=== PATIENT | male | born 1975 | race American Indian/Alaskan Native ===

== ENCOUNTER 2017-02-04 07:41 | Emergency (ER) | payer BC ==
[2017-02-04 08:01] VITALS: BP 129/79
--- NOTE | 2017-02-04 11:03 | Emergency Department Report ---
Entered by CARROLL LERMA, acting as scribe for YAEL ART PA. - General Chief complaint: Skin/Abscess/Foreign Body Stated complaint: ABCESS Time Seen by Provider: 02/04/17 10:23 Source: patient Mode of arrival: Ambulatory Limitations: No Limitations - History of Present Illness Initial comments: 41 y/o male presents c/o abscess on his left buttocks region that started 4 days ago and worsened yesterday. Pt states he could not stand up due to pain and notes pain is aggravated by sitting. Sx include fever and chills that started and resolved 3 days ago but pt denies any drainage from the abscess. No additional Sx. MD complaint: abscess/boil -: days(s) (4) Location: buttocks (left region) Severity: mild Quality: constant Consistency: constant Improves with: none Worsens with: other (sitting) Context: none Associated symptoms: fever (relieved 2 days ago), other (chills relieved 2 days ago, but pt denies drainage) Treatments Prior to Arrival: none - Related Data Previous Rx's Medication Instructions Recorded Last Taken Type Acetaminophen/Codeine [Tylenol 1 tab PO Q4HR PRN #12 tablet 02/04/17 Unknown Rx /Codeine # 3 tab] Sulfamethoxazole/Trimethoprim 1 each PO BID #20 tablet 02/04/17 Unknown Rx [Bactrim DS TAB] Allergies Allergy/AdvReac Type Severity Reaction Status Date / Time No Known Allergies Allergy Unverified 02/04/17 07:58 Abscess Boil HPI - HPI Chief Complaint: Skin/Abscess/Foreign Body Stated Complaint: ABCESS Home Medications: Previous Rx's Medication Instructions Recorded Last Taken Type Acetaminophen/Codeine [Tylenol 1 tab PO Q4HR PRN #12 tablet 02/04/17 Unknown Rx /Codeine # 3 tab] Sulfamethoxazole/Trimethoprim 1 each PO BID #20 tablet 02/04/17 Unknown Rx [Bactrim DS TAB] Allergies/Adverse Reactions: Allergies Allergy/AdvReac Type Severity Reaction Status Date / Time No Known Allergies Allergy Unverified 02/04/17 07:58 ED Review of Systems Comment: All other systems reviewed and negative Constitutional: chills, fever Skin: denies: other (drainage ) ED Past Medical Hx - Past Medical History Previous Medical History?: No - Surgical History Past Surgical History?: No - Social History Smoking Status: Current Every Day Smoker Substance Use Type: Alcohol - Medications Home Medications: Home Medications Medication Instructions Recorded Confirmed Last Taken Type Acetaminophen/Codeine [Tylenol 1 tab PO Q4HR PRN #12 tablet 02/04/17 Unknown Rx /Codeine # 3 tab] Sulfamethoxazole/Trimethoprim 1 each PO BID #20 tablet 02/04/17 Unknown Rx [Bactrim DS TAB] ED Physical Exam - General Limitations: No Limitations - Head Head exam: Present: atraumatic, normocephalic - Eye Eye exam: Present: normal appearance - ENT ENT exam: Present: mucous membranes moist - Skin Skin exam: Present: warm, dry - Expanded Skin Exam Expanded Type of lesion: Present: abscess (10 cm x 4 cm indurated in left gueatal cleft , tender to palpate with soft center. ) 1 - 10cm x 4cm - Other Other exam information: GENERAL: Patient is alert and oriented x 3. No apparent distress, normal gait, atraumatic. HEAD: Head is normocephalic and atraumatic. EYES: Extraocular movements are intact. Pupils are equal, round, and reactive to light and accommodation. NECK: Supple. Non edematous, no carotid bruits. No lymphadenopathy or thyromegaly. LUNGS: Symmetrical with respiration. No wheezing, rales or crackles, CTAB. HEART: Regular rate and rhythm with normal S1/S2 present. No murmurs, rubs, or gallops. ABDOMEN: Soft, nondistended. Nontender to palpation on all quadrants. No organomegaly was noted. Positive bowel sounds. No CVA tenderness. BREAST: Symmetrical. Supple bilaterally, No Masses, lumps, lesions, ulcerations. GENITOURINARY: External genitalia without erythema, exudate or discharge. Vaginal vault is without discharge. Cervix is of normal color without lesion. Cervical os is closed. No bleeding noted. Uterus is noted to be of normal size and nontender. No cervical motion tenderness. No masses are palpated. The adnexa are without masses or tenderness. UROGENITAL: No scrotal mass. Scrotum non tender to palpation bilaterally. No hernia, no scars or penile discharge. EXTREMITIES/MUSCULOSKELETAL: No cyanosis, clubbing, rash, lesions or edema. Full ROM bilaterally. UE/LE Pulses 2+ bilaterally. LE and UE 5+ strength bilaterally SKIN: Warm and dry. No lesions, ulceration or induration present. ED Course Vital Signs 02/04/17 07:58 Temperature 99.1 F Pulse Rate 94 H Respiratory 16 Rate Blood Pressure 129/79 O2 Sat by Pulse 100 Oximetry ED Medical Decision Making - Medical Decision Making 41 y/o male presents c/o abscess on his left buttocks region that started 4 days ago and worsened yesterday. Will place patient on Bactrim double strength for 10 days. Discussed the patient he needs to follow up within 3-5 days for evaluation of abscess. Patient verbalized understanding Patient is in no acute distress at this time. He will be discharged home and is encouraged to follow up with a primary care provider. He is encouraged to return to the emergency room for any worsening symptoms. ED Disposition Clinical Impression: Abscess, Cellulitis and abscess of buttock Disposition: DISCHARGED TO HOME OR SELFCARE Is pt being admited?: No Does the pt Need Aspirin: No Condition: Stable Instructions: Abscess (ED), Cellulitis (ED) Additional Instructions: Please complete antibiotics as prescribed. Follow up in the emergency room in 3 -5 days for follow-up. Recommend since all warm baths. As well as warm to hot moist compresses to the abscess. Prescriptions: Acetaminophen/Codeine [Tylenol /Codeine # 3 tab] 1 tab PO Q4HR PRN #12 tablet PRN Reason: Pain Sulfamethoxazole/Trimethoprim [Bactrim DS TAB] 1 each PO BID #20 tablet Referrals: PRIMARY CARE, [Primary Care Provider] - 3-5 Days Forms: Work/School Release Form(ED) This documentation as recorded by the FLORENTIN phillips RYAN,accurately reflects the service I personally performed and the decisions made by ,YAEL ART PA.
== END 2017-02-04 11:02 | disposition home or self-care (01) ==
LOC: ED 07:41
DX: L02.31 Cutaneous abscess of buttock (principal); L03.317 Cellulitis of buttock; F17.200 Nicotine dependence, unspecified, uncomplicated
CPT/HCPCS: 87116; 99282

== ENCOUNTER 2017-02-09 12:31 | Emergency (ER) | payer BC | END 2017-02-09 12:32 | disposition left against medical advice (07) | LOC: ED 12:31 | DX: Z53.21 Procedure and treatment not carried out due to patient leaving prior to being seen by health care provider (principal) ==

== ENCOUNTER 2019-05-23 08:01 | Emergency (ER) | payer BC, OTHER ==
[2019-05-23 08:11] VITALS: BP 136/87
[2019-05-23] MEDS ORDERED: NACL 0.9% 1000 ML 1,000 ML IV ONE (08:30)
[2019-05-23] MEDS ORDERED: MORPHINE IV ONE (08:30)
[2019-05-23] MEDS ORDERED: CLEOCIN 900 MG/50 mL 900 MG/50 ML BAG IV ONE (08:30)
--- NOTE | 2019-05-23 08:49 | Emergency Department Report ---
Abscess Boil HPI - HPI Chief Complaint: Skin/Abscess/Foreign Body Stated Complaint: BOIL ON BACK Time Seen by Provider: 05/23/19 08:21 Duration: 5 Days Location: Perianal Severity: Moderate History: Yes Pain, No Fever, No Purulent Drainage, No Numbness, No Foreign Body, No Previous History, No Insect Bite HPI: This is a 28-year-old male nontoxic, well nourished in appearance, no acute signs of distress presents to the ED with c/o of perianal swelling and pain with redness. Patient denies any pus or drainage. Patient denies any fever, chills, nausea, vomiting, chest pain, shortness of breath, headache or stiff neck. Patient denies any allergies or significant past medical history. Home Medications: Previous Rx's Medication Instructions Recorded Last Taken Type Acetaminophen/Codeine [Tylenol 1 tab PO Q4HR PRN #12 tablet 02/04/17 Unknown Rx /Codeine # 3 tab] Sulfamethoxazole/Trimethoprim 1 each PO BID #20 tablet 02/04/17 Unknown Rx [Bactrim DS TAB] Acetaminophen/Codeine [Tylenol 1 tab PO Q6H PRN #12 tab 05/23/19 Unknown Rx /Codeine # 3 tab] Clindamycin [Clindamycin CAP] 300 mg PO Q8H #21 cap 05/23/19 Unknown Rx Allergies/Adverse Reactions: Allergies Allergy/AdvReac Type Severity Reaction Status Date / Time No Known Allergies Allergy Unverified 02/04/17 07:58 ED Review of Systems ROS: Stated complaint: BOIL ON BACK Other details as noted in HPI Constitutional: denies: chills, fever Eyes: denies: eye pain, eye discharge, vision change ENT: denies: ear pain, throat pain Respiratory: denies: cough, shortness of breath, wheezing Cardiovascular: denies: chest pain, palpitations Endocrine: no symptoms reported Gastrointestinal: denies: abdominal pain, nausea, diarrhea Genitourinary: denies: urgency, dysuria Musculoskeletal: denies: back pain, joint swelling, arthralgia Skin: denies: rash, lesions Neurological: denies: headache, weakness, paresthesias Psychiatric: denies: anxiety, depression Hematological/Lymphatic: denies: easy bleeding, easy bruising ED Past Medical Hx - Past Medical History Previous Medical History?: No - Surgical History Past Surgical History?: No - Social History Smoking Status: Current Every Day Smoker Substance Use Type: None - Medications Home Medications: Home Medications Medication Instructions Recorded Confirmed Last Taken Type Acetaminophen/Codeine [Tylenol 1 tab PO Q4HR PRN #12 tablet 02/04/17 Unknown Rx /Codeine # 3 tab] Sulfamethoxazole/Trimethoprim 1 each PO BID #20 tablet 02/04/17 Unknown Rx [Bactrim DS TAB] Acetaminophen/Codeine [Tylenol 1 tab PO Q6H PRN #12 tab 05/23/19 Unknown Rx /Codeine # 3 tab] Clindamycin [Clindamycin CAP] 300 mg PO Q8H #21 cap 05/23/19 Unknown Rx ED Abscess Boil Physical Exam - Exam General: Vital signs noted. No distress. Alert and acting appropriately. Front/Back of Body, Lg (Color): 1 - pain and swelling here Size: >5 cm Exam: Yes Tenderness, Yes Fluctuance, Yes Normal Neurologic Exam, Yes Normal Circulation, No Surrounding Cellulites/Erythema, No Lymphangitis, No Crepitation, No Heart Murmur I & D Note - I & D Note I & D Note: Under sterile field, I used Betadine to cleanse the area. I then used 2% lidocaine plain with 25-gauge 5/8 needle to inject area for anesthetic purposes. Total volume injected 3 mL. I then used an 11 blade to make a 1 cm incision. About 2 mL's of purulent drainage has been noted. I then used a hemostat to break the abscess formation. I then used sterile 0.9% normal saline flush to flush the wound with total volume of 40 mL used. I then put a 1 inch iodoform packing to the incision. A sterile 4 x 4 with tape has been applied as dressing. Bleeding is under control. Patient tolerated the procedure well with no signs of distress noted. ED Course Vital Signs 05/23/19 08:11 Temperature 98.2 F Pulse Rate 97 H Respiratory 16 Rate Blood Pressure 136/87 [Right] O2 Sat by Pulse 97 Oximetry - Reevaluation(s) Reevaluation #1: 05/23/19 08:49 Patient is speaking in full sentences with no signs of distress noted. Critical care attestation.: If time is entered above; I have spent that time in minutes in the direct care of this critically ill patient, excluding procedure time. ED Medical Decision Making - Lab Data Result diagrams: 05/23/19 08:33 05/23/19 08:33 - Medical Decision Making This is a 44-year-old male that presents with abscess. Patient is stable and was examined by me. This is incision and drainage and has been performed and patient tolerated well. A sterile dressing has been applied. Patient was educated on proper wound care. CT scan with contrast has been obtained and dictated by radiologist with gluteal abscess. Patient did receive IV clindamycin in the ER. Patient is discharged with clindamycin and Tylenol with codeine and was instructed not to operate any machinery while taking Tylenol with codeine due to drowsiness. Patient was instructed to return in 2 days for packing removal. Patient was instructed to refer to Follow-up with a primary care doctor in 3-5 days or if symptoms worsen and continue return to emergency room as soon as possible. At time of discharge, the patient does not seem toxic or ill in appearance. No acute signs of distress noted. Patient agrees to discharge treatment plan of care. No further questions noted by the patient. ED Disposition Clinical Impression: Abscess, Encounter for incision and drainage procedure Disposition: - TO HOME OR SELFCARE Is pt being admited?: No Does the pt Need Aspirin: No Condition: Stable Instructions: Abscess Incision and Drainage (ED), Abscess (ED), Acetaminophen/Codeine (By mouth) Additional Instructions: Follow-up with a primary care doctor in 3-5 days or if symptoms worsen and continue return to emergency room as soon as possible. Do not operate any machinery while taking Tylenol with codeine as this may cause drowsiness. Return in 2 days for packing removal. Prescriptions: Clindamycin [Clindamycin CAP] 300 mg PO Q8H #21 cap Acetaminophen/Codeine [Tylenol /Codeine # 3 tab] 1 tab PO Q6H PRN #12 tab PRN Reason: Pain , Severe (7-10) Referrals: [facility] MD RUTH [Primary Care Provider] - 3-5 Days PRIMARY MD KALPESH [Referring] - 3-5 Days JERAMY ADAMS MD [Staff Physician] - 3-5 Days [facility] [Outside] - 3-5 Days [facility] [Outside] - 3-5 Days Forms: Work/School Release Form(ED)
[2019-05-23 08:59] LABS: Basophils % (Auto) 0.2 % (0.0-1.8); Eosinophils # (Auto) 0.1 K/mm3 (0.0-0.4); Eosinophils % (Auto) 0.7 % (0.0-4.3); Hematocrit 44.2 % (35.5-45.6); Hemoglobin 15.4 gm/dl (11.8-15.2); Lymphocytes # (Auto) 1.8 K/mm3 (1.2-5.4); Lymphocytes % (Auto) 13.9 % (13.4-35.0); Mean Corpuscular HGB Conc 35 % (32-34); Mean Corpuscular Volume 95 fl (84-94); Monocytes # (Auto) 1.5 K/mm3 (0.0-0.8); Monocytes % (Auto) 11.3 % (0.0-7.3); Platelet Count 250 K/mm3 (140-440); Red Blood Count 4.64 M/mm3 (3.65-5.03); Red Cell Distribution Width 13.1 % (13.2-15.2)
[2019-05-23 09:15] LABS: BUN/Creatinine Ratio 10; Blood Urea Nitrogen 12 mg/dL (9-20); Calcium 9.7 mg/dL (8.4-10.2); Hemolysis Index 9
--- NOTE | 2019-05-23 10:41 | Cat Scan Report ---
CT PELVIS WITH CONTRAST HISTORY: MAIN: perianal pain and swelling r/o abscess TECH NOTE: PERIANAL ABSCESS THAT STARTED SATU RDAY. COMPARISON: None. TECHNIQUE: CT images of the pelvis were obtained following administration of intravenous contrast. Sa gittal and coronal reformatted images. All CT scans at this location are performed using CT dose redu ction for [facility] by means of automated exposure control. CONTRAST: 100 ml of intravenous contrast administered. FINDINGS: There is an ill-defined area of skin induration and swelling in the medial left buttock subcutaneous tissues measuring 3.9 x 2.5 cm in axial plane. There appears to be a a small amount of internal fluid but no gas. This probably represents an early left gluteal abscess. This appears to be slightly post erior to the anus. The ischiorectal fossa fat is clean. Visualized bowel loops in the pelvis are within normal limits. Normal appendix. The bladder, distal ureters and prostate gland are normal. The vascular structures are patent. The [place] pelvis is intact. No evidence for pelvic abscess, inflammation or adenopathy. IMPRESSION: Early left medial gluteal subcutaneous abscess as described. Signer Name: Earl Lopez Jr, MD Signed: 05/23/2019 10:37 AM Workstation Name: [id number]
[2019-05-23] MEDS ORDERED: XYLOCAINE 2% INFILTRATI ONE (10:56)
== END 2019-05-23 11:21 | disposition home or self-care (01) ==
LOC: ED 08:01
DX: L02.212 Cutaneous abscess of back [any part, except buttock and flank] (principal); F17.200 Nicotine dependence, unspecified, uncomplicated; Z79.899 Other long term (current) drug therapy
CPT/HCPCS: 10060; 36415; 72193; 80048; 85025; 96365; 96375; 99284; J2270; J7030; Q9967

== ENCOUNTER 2019-05-25 09:18 | Emergency (ER) | payer OTHER ==
[2019-05-25 09:30] VITALS: BP 123/81
--- NOTE | 2019-05-25 10:12 | Emergency Department Report ---
- General Chief Complaint: Skin/Abscess/Foreign Body Stated Complaint: FOLLOW UP Time Seen by Provider: 05/25/19 09:59 Source: patient Mode of arrival: Ambulatory Limitations: No Limitations - History of Present Illness Initial Comments: Mr. Khan is a healthy 44-year-old male who presents to the ER for skin check. 2 days ago he was treated for a left buttock abscess with incision and drainage. Packing is in place. Continue to take antibiotics. The abscesses has continued to drain pus. No associated symptoms. Minor discomfort. No fever. Denies history of diabetes. -: Gradual Location: other (left buttock) Extremity Location: Left: Hip Context: other (abscess incision and drainage) Associated Symptoms: none - Related Data Previous Rx's Medication Instructions Recorded Last Taken Type Acetaminophen/Codeine [Tylenol 1 tab PO Q4HR PRN #12 tablet 02/04/17 Unknown Rx /Codeine # 3 tab] Sulfamethoxazole/Trimethoprim 1 each PO BID #20 tablet 02/04/17 Unknown Rx [Bactrim DS TAB] Acetaminophen/Codeine [Tylenol 1 tab PO Q6H PRN #12 tab 05/23/19 Unknown Rx /Codeine # 3 tab] Clindamycin [Clindamycin CAP] 300 mg PO Q8H #21 cap 05/23/19 Unknown Rx Allergies Allergy/AdvReac Type Severity Reaction Status Date / Time No Known Allergies Allergy Unverified 02/04/17 07:58 ED Review of Systems ROS: Stated complaint: FOLLOW UP Other details as noted in HPI Constitutional: denies: fever, malaise Gastrointestinal: denies: abdominal pain Skin: rash Neurological: denies: numbness ED Past Medical Hx - Past Medical History Previous Medical History?: No - Surgical History Past Surgical History?: No - Social History Smoking Status: Current Every Day Smoker Substance Use Type: Alcohol - Medications Home Medications: Home Medications Medication Instructions Recorded Confirmed Last Taken Type Acetaminophen/Codeine [Tylenol 1 tab PO Q4HR PRN #12 tablet 02/04/17 Unknown Rx /Codeine # 3 tab] Sulfamethoxazole/Trimethoprim 1 each PO BID #20 tablet 02/04/17 Unknown Rx [Bactrim DS TAB] Acetaminophen/Codeine [Tylenol 1 tab PO Q6H PRN #12 tab 05/23/19 Unknown Rx /Codeine # 3 tab] Clindamycin [Clindamycin CAP] 300 mg PO Q8H #21 cap 05/23/19 Unknown Rx ED Physical Exam - General Limitations: No Limitations General appearance: alert, in no apparent distress - Head Head exam: Present: atraumatic, normocephalic - ENT ENT exam: Present: mucous membranes moist - Neurological Exam Neurological exam: Present: alert, oriented X3 - Psychiatric Psychiatric exam: Present: normal affect, normal mood - Other Other exam information: Left buttock 6 cm abscess with fluctuance and no erythema. Small opening with iodoform packing and copious purulence ED Course Vital Signs 05/25/19 09:27 Temperature 97.8 F Pulse Rate 73 Respiratory 18 Rate Blood Pressure 123/81 O2 Sat by Pulse 98 Oximetry ED Medical Decision Making - Medical Decision Making I have elected to keep the iodoform packing in place, Mr. Khan return for packing removal once antibiotics are completed next week. Critical care attestation.: If time is entered above; I have spent that time in minutes in the direct care of this critically ill patient, excluding procedure time. ED Disposition Clinical Impression: Abscess Disposition: DC-01 TO HOME OR SELFCARE Is pt being admited?: No Does the pt Need Aspirin: No Condition: Stable Additional Instructions: Please return once you have completed all the antibiotics. Forms: Work/School Release Form(ED)
== END 2019-05-25 10:25 | disposition home or self-care (01) ==
LOC: ED 09:18
DX: L02.31 Cutaneous abscess of buttock (principal); F17.200 Nicotine dependence, unspecified, uncomplicated; Z79.899 Other long term (current) drug therapy
CPT/HCPCS: 99282

== ENCOUNTER 2020-12-06 19:59 | Emergency (ER) | payer OTHER ==
[2020-12-06] MEDS ORDERED: IBUPROFEN 800 MG TAB PO ONE (20:05)
[2020-12-06] MEDS ORDERED: CLINDAMYCIN 150 MG CAP PO ONE (20:06)
[2020-12-06] MEDS ORDERED: SULFAMETHOXAZOLE/TRIMETHOPRIM 800/160MG DS TAB PO ONE (20:06)
[2020-12-06] MEDS ORDERED: oxyCODONE /ACETAMINOPHEN 5-325MG TAB PO ONE (20:07)
[2020-12-06] MEDS ORDERED: LIDOCAINE (1%) 10 MG/1 ML VIAL 20 ML MDV INFILTRATI ONE (20:07)
[2020-12-06] MEDS ORDERED: ONDANSETRON 4 MG ODT TAB PO ONE (20:07)
--- NOTE | 2020-12-06 20:14 | Emergency Department Report ---
ED General Adult HPI - General Chief complaint: Wound/Laceration Stated complaint: BOIL Source: patient Mode of arrival: Ambulatory Limitations: No Limitations - History of Present Illness Initial comments: Patient is a 45-year-old -[place] male with a history of morbid obesity who presents to the ED with complaint of acute onset persistent painful swollen erythematous maculopapular rash on right gluteus for the last 1 week. Patient states that he has been taking [id number] medications with no relief. Patient states that he has previously had similar symptoms and had to be lanced in the ER. Patient denies fever, chills, nausea, vomiting, dizziness, syncope, chest pain or shortness of breath, numbness and tingling or weakness of lower extremities bilaterally. MD Complaint: Right gluteal painful swollen rash -: Sudden, days(s) (7) Location: buttocks (right gluteus) Radiation: non-radiation Severity scale (0 -10): 8 Quality: aching, sharp Consistency: constant Improves with: none Worsens with: movement Associated Symptoms: denies other symptoms, rash (swollen, painful erythematous rash on right gluteus). denies: confusion, chest pain, cough, diaphoresis, fever/chills, headaches, loss of appetite, malaise, nausea/vomiting, seizure, shortness of breath, syncope, weakness, other Treatments Prior to Arrival: none - Related Data Previous Rx's Medication Instructions Recorded Last Taken Type Acetaminophen/Codeine [Tylenol 1 tab PO Q4HR PRN #12 tablet 02/04/17 Unknown Rx /Codeine # 3 tab] Sulfamethoxazole/Trimethoprim 1 each PO BID #20 tablet 02/04/17 Unknown Rx [Bactrim DS TAB] Acetaminophen/Codeine [Tylenol 1 tab PO Q6H PRN #12 tab 05/23/19 Unknown Rx /Codeine # 3 tab] Clindamycin [Clindamycin CAP] 300 mg PO Q8H #21 cap 05/23/19 Unknown Rx Acetaminophen/Codeine [Tylenol 1 tab PO Q6H PRN #12 tab 12/06/20 Unknown Rx /Codeine # 3 tab] Clindamycin [Clindamycin CAP] 300 mg PO Q8HR #60 capsule 12/06/20 Unknown Rx Ibuprofen [Motrin] 800 mg PO Q8HR PRN #30 tablet 12/06/20 Unknown Rx Sulfamethoxazole/Trimethoprim 1 each PO Q12H #20 tablet 12/06/20 Unknown Rx [Bactrim DS TAB] Allergies Allergy/AdvReac Type Severity Reaction Status Date / Time No Known Allergies Allergy Verified 12/06/20 20:13 ED Review of Systems ROS: Stated complaint: BOIL Other details as noted in HPI Constitutional: denies: chills, fever Eyes: denies: eye pain, eye discharge, vision change ENT: denies: ear pain, throat pain Respiratory: denies: cough, shortness of breath, wheezing Cardiovascular: denies: chest pain, palpitations Endocrine: no symptoms reported Gastrointestinal: denies: abdominal pain, nausea, diarrhea Genitourinary: denies: urgency, dysuria Musculoskeletal: arthralgia (right gluteus painful swollne rash). denies: back pain, joint swelling Skin: rash (swollen erythematous painful rash on right gluteus), change in color. denies: lesions Neurological: denies: headache, weakness, paresthesias Psychiatric: denies: anxiety, depression Hematological/Lymphatic: denies: easy bleeding, easy bruising ED Past Medical Hx - Past Medical History Previous Medical History?: No - Social History Smoking Status: Current Every Day Smoker - Medications Home Medications: Home Medications Medication Instructions Recorded Confirmed Last Taken Type Acetaminophen/Codeine [Tylenol 1 tab PO Q4HR PRN #12 tablet 02/04/17 Unknown Rx /Codeine # 3 tab] Sulfamethoxazole/Trimethoprim 1 each PO BID #20 tablet 02/04/17 Unknown Rx [Bactrim DS TAB] Acetaminophen/Codeine [Tylenol 1 tab PO Q6H PRN #12 tab 05/23/19 Unknown Rx /Codeine # 3 tab] Clindamycin [Clindamycin CAP] 300 mg PO Q8H #21 cap 05/23/19 Unknown Rx Acetaminophen/Codeine [Tylenol 1 tab PO Q6H PRN #12 tab 12/06/20 Unknown Rx /Codeine # 3 tab] Clindamycin [Clindamycin CAP] 300 mg PO Q8HR #60 capsule 12/06/20 Unknown Rx Ibuprofen [Motrin] 800 mg PO Q8HR PRN #30 tablet 12/06/20 Unknown Rx Sulfamethoxazole/Trimethoprim 1 each PO Q12H #20 tablet 12/06/20 Unknown Rx [Bactrim DS TAB] ED Physical Exam - General Limitations: No Limitations General appearance: alert, in no apparent distress - Head Head exam: Present: atraumatic, normocephalic, normal inspection - Eye Eye exam: Present: normal appearance, PERRL, EOMI Pupils: Present: normal accommodation - ENT ENT exam: Present: normal exam, normal orophraynx, mucous membranes moist, TM's normal bilaterally, normal external ear exam - Neck Neck exam: Present: normal inspection, full ROM - Respiratory Respiratory exam: Present: normal lung sounds bilaterally. Absent: respiratory distress, wheezes, rales, rhonchi, chest wall tenderness, prolonged expiratory - Cardiovascular Cardiovascular Exam: Present: normal rhythm, tachycardia, normal heart sounds. Absent: systolic murmur, diastolic murmur, rubs, gallop - GI/Abdominal GI/Abdominal exam: Present: soft, normal bowel sounds. Absent: tenderness, guarding, rebound, hyperactive bowel sounds, hypoactive bowel sounds, organomegaly, mass - Extremities Exam Extremities exam: Present: normal inspection, full ROM, normal capillary refill - Back Exam Back exam: Present: normal inspection, full ROM. Absent: tenderness, CVA tenderness (R), CVA tenderness (L), muscle spasm, paraspinal tenderness, vertebral tenderness - Neurological Exam Neurological exam: Present: alert, oriented X3, CN II-XII intact, normal gait, reflexes normal - Psychiatric Psychiatric exam: Present: normal affect, normal mood - Skin Skin exam: Present: warm, dry, intact, normal color, rash (Palpable severely tender swollen erythematous maculopapular fluctuant rash on right gluteus), erythema ED Course Vital Signs 12/06/20 12/06/20 20:04 23:23 Temperature 99.6 F Pulse Rate 108 H 90 Respiratory 20 18 Rate Blood Pressure 139/78 Blood Pressure 131/80 [Right] O2 Sat by Pulse 94 95 Oximetry - I & D Right Buttocks Type of Procedure: Simple Site: Right gluteus cleft Blade Size: 11 I & D Procedure: betadine prep, sterile drapes applied, sterile dressing applied Progress: The area was cleaned with with normal saline and Betadine and local anesthetic lidocaine 1% solution was used to infiltrate the area for anesthesia. The area was then incised per protocol and thick purulent discharge drained from the incision. The loculations were broken extensively with hemostat and the content debrided extensively with normal saline. The wound was then packed with iodoform quarter-inch and dressed appropriately. Patient tolerated procedure well. ED Medical Decision Making - Medical Decision Making This is a 45-year-old -[place] male with a history of morbid obesity who presents to the ED with complaint of acute onset persistent painful swollen erythematous maculopapular rash on right gluteus for the last 1 week. Patient states that he has been taking [id number] medications with no relief. Patient states that he has previously had similar symptoms and had to be lanced in the ER. The ED, patient is alert and oriented x3 and is not in any distress. Patient was treated for pain in the ED and also given initial oral antibiotics. The swollen fluctuant right gluteal abscess was incised and drained per protocol. Patient tolerated procedure well. The wound was debrided thoroughly with normal saline afterwards and dressed appropriately after packing with iodoform gauze quarter-inch. Patient tolerated procedure well. Patient was therefore discharged home on pain medications and antibiotics and was advised to return to the ED in 2 days for wound recheck and packing removal. Patient was advised to follow-up with his primary care physician in 7 to 10 days for reevaluation or return to the ED immediately if symptoms get worse. - Differential Diagnosis Cellulitis; abscess; folliculitis Critical care attestation.: If time is entered above; I have spent that time in minutes in the direct care of this critically ill patient, excluding procedure time. ED Disposition Clinical Impression: Cutaneous abscess of buttock, Cellulitis of right buttock Disposition: DC-01 TO HOME OR SELFCARE Is pt being admited?: No Does the pt Need Aspirin: No Condition: Stable Instructions: Skin Abscess, [id number], Cellulitis, Adult, [id number], Incision and Drainage, Care After Additional Instructions: Take medication with food, drink plenty of fluids and follow-up with your primary care physician in 7 to 10 days for reevaluation. Return to the ED immediately if symptoms get worse. Otherwise return to the ED in 2 days for wound recheck and packing removal. Prescriptions: Sulfamethoxazole/Trimethoprim [Bactrim DS TAB] 1 each PO Q12H #20 tablet Clindamycin [Clindamycin CAP] 300 mg PO Q8HR #60 capsule Ibuprofen [Motrin] 800 mg PO Q8HR PRN #30 tablet PRN Reason: Pain , Severe (7-10) Acetaminophen/Codeine [Tylenol /Codeine # 3 tab] 1 tab PO Q6H PRN #12 tab PRN Reason: Severe pain Referrals: MELINA VILLALPANDO MD [Staff Physician] - 7-10 days Forms: Work/School Release Form(ED) Time of Disposition: 23:01 Print Language: GEORGIAN
[2020-12-06 23:24] VITALS: BP 131/80
== END 2020-12-06 23:23 | disposition home or self-care (01) ==
LOC: ED 19:59
DX: L02.31 Cutaneous abscess of buttock (principal); F17.200 Nicotine dependence, unspecified, uncomplicated; Z79.899 Other long term (current) drug therapy; Z79.2 Long term (current) use of antibiotics; Z79.1 Long term (current) use of non-steroidal anti-inflammatories (NSAID)
CPT/HCPCS: 99282; Q0162

== ENCOUNTER 2020-12-09 09:36 | Emergency (ER) | payer OTHER ==
--- NOTE | 2020-12-09 09:52 | Emergency Department Report ---
- General Chief Complaint: Skin/Abscess/Foreign Body Stated Complaint: WOUND CHECK Time Seen by Provider: 12/09/20 09:47 Source: patient Mode of arrival: Ambulatory Limitations: No Limitations - History of Present Illness Initial Comments: 45-year-old -[place] male presents to the emergency room for wound check from an abscess that was packed a few days ago. Patient states that he still taking her antibiotics and pain medication. Patient states that it seems to be getting better but still very tender to sit as his job entails for him to sit for long period of time. Patient denies any recent fevers or chills since procedure. - Related Data Previous Rx's Medication Instructions Recorded Last Taken Type Acetaminophen/Codeine [Tylenol 1 tab PO Q4HR PRN #12 tablet 02/04/17 Unknown Rx /Codeine # 3 tab] Sulfamethoxazole/Trimethoprim 1 each PO BID #20 tablet 02/04/17 Unknown Rx [Bactrim DS TAB] Acetaminophen/Codeine [Tylenol 1 tab PO Q6H PRN #12 tab 05/23/19 Unknown Rx /Codeine # 3 tab] Clindamycin [Clindamycin CAP] 300 mg PO Q8H #21 cap 05/23/19 Unknown Rx Acetaminophen/Codeine [Tylenol 1 tab PO Q6H PRN #12 tab 12/06/20 Unknown Rx /Codeine # 3 tab] Clindamycin [Clindamycin CAP] 300 mg PO Q8HR #60 capsule 12/06/20 Unknown Rx Ibuprofen [Motrin] 800 mg PO Q8HR PRN #30 tablet 12/06/20 Unknown Rx Sulfamethoxazole/Trimethoprim 1 each PO Q12H #20 tablet 12/06/20 Unknown Rx [Bactrim DS TAB] Allergies Allergy/AdvReac Type Severity Reaction Status Date / Time No Known Allergies Allergy Verified 12/06/20 20:13 ED Review of Systems ROS: Stated complaint: WOUND CHECK Other details as noted in HPI Comment: All other systems reviewed and negative ED Past Medical Hx - Past Medical History Previous Medical History?: No - Surgical History Past Surgical History?: No - Social History Smoking Status: Never Smoker Substance Use Type: None - Medications Home Medications: Home Medications Medication Instructions Recorded Confirmed Last Taken Type Acetaminophen/Codeine [Tylenol 1 tab PO Q4HR PRN #12 tablet 02/04/17 Unknown Rx /Codeine # 3 tab] Sulfamethoxazole/Trimethoprim 1 each PO BID #20 tablet 02/04/17 Unknown Rx [Bactrim DS TAB] Acetaminophen/Codeine [Tylenol 1 tab PO Q6H PRN #12 tab 05/23/19 Unknown Rx /Codeine # 3 tab] Clindamycin [Clindamycin CAP] 300 mg PO Q8H #21 cap 05/23/19 Unknown Rx Acetaminophen/Codeine [Tylenol 1 tab PO Q6H PRN #12 tab 12/06/20 Unknown Rx /Codeine # 3 tab] Clindamycin [Clindamycin CAP] 300 mg PO Q8HR #60 capsule 12/06/20 Unknown Rx Ibuprofen [Motrin] 800 mg PO Q8HR PRN #30 tablet 12/06/20 Unknown Rx Sulfamethoxazole/Trimethoprim 1 each PO Q12H #20 tablet 12/06/20 Unknown Rx [Bactrim DS TAB] ED Physical Exam - General Limitations: No Limitations General appearance: alert, in no apparent distress - Head Head exam: Present: atraumatic, normocephalic - Eye Eye exam: Present: normal appearance - ENT ENT exam: Present: mucous membranes moist - Neck Neck exam: Present: normal inspection, full ROM - Respiratory Respiratory exam: Absent: accessory muscle use - Cardiovascular Cardiovascular Exam: Present: regular rate, normal rhythm. Absent: systolic murmur, diastolic murmur, rubs, gallop - Extremities Exam Extremities exam: Present: normal inspection, full ROM - Neurological Exam Neurological exam: Present: alert, oriented X3, normal gait - Psychiatric Psychiatric exam: Present: normal affect, normal mood - Skin Skin exam: Present: other (Right gluteal packing removed. Not erythematous minimal tenderness.) ED Medical Decision Making - Medical Decision Making 45-year-old -[place] male presents to the emergency room for wound check from an abscess that was packed a few days ago. Patient states that he still taking her antibiotics and pain medication. Patient states that it seems to be getting better but still very tender to sit as his job entails for him to sit for long period of time. Patient denies any recent fevers or chills since procedure. Critical care attestation.: If time is entered above; I have spent that time in minutes in the direct care of this critically ill patient, excluding procedure time. ED Disposition Clinical Impression: Cutaneous abscess of buttock, Visit for wound check Disposition: TO HOME OR SELFCARE Is pt being admited?: No Does the pt Need Aspirin: No Condition: Stable Instructions: Wound Care, Adult Additional Instructions: Continue with antibiotics. Keep wound clean and dry. Return back to the emergency room with any worsening symptoms spiking fever nausea vomiting or increased swelling at the site. Try using chlorhexidine antimicrobial wash. Referrals: PRIMARY CAREMD [Primary Care Provider] - 3-5 Days MELINA VILLALPANDO MD [Staff Physician] - 3-5 Days CÉSAR VILLATORO JR, MD [Staff Physician] - 3-5 Days Forms: Work/School Release Form(ED)
== END 2020-12-09 10:09 | disposition home or self-care (01) ==
LOC: ED 09:36
DX: L02.31 Cutaneous abscess of buttock (principal); Z48.00 Encounter for change or removal of nonsurgical wound dressing; Z79.899 Other long term (current) drug therapy
CPT/HCPCS: 99281

== ENCOUNTER 2021-01-23 08:29 | Outpatient (CLI) | payer OTHER ==
[2021-01-23 09:11] LABS: Basophils % (Auto) 0.6 % (0.0-1.8); Eosinophils # (Auto) 0.1 K/mm3 (0.0-0.4); Eosinophils % (Auto) 1.3 % (0.0-4.3); Hematocrit 44.4 % (35.5-45.6); Hemoglobin 15.5 gm/dl (11.8-15.2); Lymphocytes % (Auto) 26.2 % (13.4-35.0); Mean Corpuscular HGB Conc 35 % (32-34); Mean Corpuscular Volume 97 fl (84-94); Monocytes # (Auto) 0.5 K/mm3 (0.0-0.8); Monocytes % (Auto) 6.5 % (0.0-7.3); Platelet Count 207 K/mm3 (140-440); Red Blood Count 4.59 M/mm3 (3.65-5.03); Red Cell Distribution Width 13.7 % (13.2-15.2)
[2021-01-23 09:38] LABS: Alanine Aminotransferase 21 units/L (7-56); Albumin 4.1 g/dL (3.9-5); BUN/Creatinine Ratio 13; Blood Urea Nitrogen 13 mg/dL (9-20); Calcium 9.3 mg/dL (8.4-10.2); Chol/HDL Ratio 3.69 %; HDL Cholesterol 46 mg/dL (40-59); Hemolysis Index 5; LDL Cholesterol,Direct 119 mg/dL (50-130)
== END 2021-01-23 08:30 | disposition home or self-care (01) ==
LOC: LAB 08:29
PROVIDERS: ATTEND Internal Medicine
DX: Z13.29 Encounter for screening for other suspected endocrine disorder (principal); Z00.00 Encounter for general adult medical examination without abnormal findings; E55.9 Vitamin D deficiency, unspecified
CPT/HCPCS: 36415; 80053; 80061; 82306; 83036; 84153; 84443; 85025; 86592; 86689; 87591